=== PATIENT | female | born 1965 | race Caucasian/White ===

== ENCOUNTER 2021-09-14 17:58 | Outpatient (CLI) | payer SELFPAY ==
--- NOTE | 2021-09-14 14:10 | EMB_PTH ---
PATIENT: OLIMPIA TAYLOR LOC: [facility] U#:[id number] AGE/SX: 55/F ROOM: RE09/14/[address]: Dr. Steve Espana MD : 1965 BED: DIS: 09/14/2021 SPEC #: [id number] RECD: 09/14/21 17:52 STATUS: SUZETTE SOLIMANDhara #: [id number] JAYLEEN: 09/14/21 14:[address]: Steve Espana DEPT: SURGICAL PATHOLOGY RECD BY: Roseline Dunne Tissues: Endometrium, NOS Procedures: Surgery Specimen Level IV HEADER OPERATION: Endometrial biopsy PRE-OP DIAGNOSIS: N95.0 TISSUE SUBMITTED: Endometrial biopsy MICROSCOPIC DIAGNOSIS Endometrial biopsy: Proliferative endometrium. PERRY:ileana 09/16/2021 MICROSCOPIC DESCRIPTION Slides are reviewed. GROSS DESCRIPTION Received in fixative is one container labeled with the patient's name and designated endometrial biopsy. The specimen consists of multiple fragments of hemorrhagic soft tissue that in aggregate measure 2 x 1.5 x 0.1 cm. The specimen is totally submitted in one cassette. / SJ:rg 09/15/2021 TC:5 CPT: 72231
[2021-09-21 21:30] LABS: HPV Reflexed? NOT INDICATED
== END 2021-09-14 23:59 | disposition home or self-care (01) ==
PROVIDERS: Visit Provider Obstetrics & Gynecology
DX: Z12.4 Encounter for screening for malignant neoplasm of cervix (principal)
CPT/HCPCS: 88175; 88305; G0145